=== PATIENT | female | born 1950 | race Caucasian/White ===

== ENCOUNTER 2016-12-03 21:05 | Emergency (ER) | payer OTHER ==
[~2016-12-03] VITALS: Ht 160 cm; Wt 123.4 kg
--- NOTE | 2016-12-03 21:30 | ED GENERAL ADULT ---
History of Present Illness General Chief Complaint: Animal/Insect Bite Stated Complaint: "STUNG BY BEE, MIGHT BE ALLERGIC" PER PT Source: patient, family, old records Exam Limitations: no limitations Vital Signs & Intake/Output Vital Signs & Intake/Output Vital Signs Date Time Temp Pulse Resp B/P B/P Pulse O2 O2 Flow FiO2 Mean Ox Delivery Rate 12/03 2108 98.4 78 18 160/96 98 Room Air Allergies Coded Allergies: Sulfa (Sulfonamide Antibiotics) (Severe, DIFFICULTY BREATHING 12/03/16) Reconcile Medications No Known Home Medications Triage Note: PT TO TRIAGE S/P GOT STUNG BY HORNET BEE 15MIN CORE [employer]ACHINE [employer]PER[employer], PT MIGHT BE ALLERGIC TO IT DUE TO HX OF MULTIPLE HORNET BEE BITES 4 YEARS AGO. AREA OF REDNESS AND STING REUBEN NOTED TO R UPPER ARM. NO OTHER SYMPTOMS. VSS. Triage Nurses Notes Reviewed? yes HPI: She got some by a hornet on her right upper arm. Patient became concerned because she was stung by over 50 bees a few years ago and came into the emergency department and she was told at that time that any future stings she might have an allergic reaction to. Patient noticed the area around the sting turned red. There is no difficulty breathing or swallowing. Patient did not have any Benadryl at home. Patient did not use her EpiPen. Patient comes in the emergency room for evaluation. Upon presentation to the emergency department her blood pressure was slightly elevated. Patient denies any headache or blurry vision. There is no nausea or vomiting. Past History Travel History Traveled to [place] past 21 day No Medical History Any Pertinent Medical History? see below for history Cardiovascular: hypertension Surgical History Surgical History: non-contributory Psychosocial History What is your primary language Cymro Tobacco Use: Never used ETOH Use: denies use Illicit Drug Use: denies illicit drug use Family History Hx Contributory? No Review of Systems Review of Systems Constitutional: Reports: no symptoms. EENTM: Reports: no symptoms. Respiratory: Reports: no symptoms. Cardiovascular: Reports: no symptoms. GI: Reports: no symptoms. Musculoskeletal: Reports: see HPI. Neurological/Psychological: Reports: no symptoms. Immunologic/Allergic: Reports: no symptoms. Physical Exam Physical Exam General Appearance: well developed/nourished, alert, awake, anxious, mild distress Eyes: Bilateral: PERRL, EOMI. Ears, Nose, Throat: normal pharynx, normal ENT inspection, hearing grossly normal, NO EDEMA Neck: normal inspection, supple, full range of motion, NO STRIDOR Respiratory: normal breath sounds, chest non-tender, no respiratory distress, lungs clear, GOOD AIR ENTRY Cardiovascular: regular rate/rhythm, normal peripheral pulses Extremities: 4 CM X 2 CM AREA OF ERYTHEMA. nOT HOT TO THE TOUCH. nO FLUCTUANCE. Neurologic/Psych: no motor/sensory deficits, awake, alert, oriented x 3, normal gait, normal mood/affect Core Measures ACS in differential dx? No CVA/TIA Diagnosis: No Severe Sepsis Present: No Septic Shock Present: No Progress Differential Diagnoses I considered the following diagnoses in my evaluation of the patient: [Allergic reaction] Plan of Care: Current Medications Sig/Aurea Start time Last Medication Dose Stop Time Status Admin Diphenhydramine HCl 25 MG ONCE ONE 12/03 2129 UNVr (Benadryl) 12/03 2130 Initial ED EKG: none Departure Departure Disposition: HOME OR SELF CARE Condition: Stable Clinical Impression Primary Impression: Bee sting Secondary Impressions: Hypertension Referrals: SHEN RODRIGUEZ DO (PCP/Family) Additional Instructions: RETURN IF SYMPTOMS WORSEN OR FOR ANY CONCERNS Departure Forms: Customer Survey General Discharge Information Prescriptions: Current Visit Scripts No Known Home Medications Critical Care Note Critical Care Note Critical Care Time: non-applicable
[2016-12-03 22:40] VITALS: BP 142/84
== END 2016-12-03 22:39 ==
LOC: ERH 21:05
DX: S40.861A Insect bite (nonvenomous) of right upper arm, initial encounter (principal); I10 Essential (primary) hypertension; W57.XXXA Bitten or stung by nonvenomous insect and other nonvenomous arthropods, initial encounter; Y93.9 Activity, unspecified; Y92.9 Unspecified place or not applicable